=== PATIENT | female | born 1940 | race Caucasian/White ===

== ENCOUNTER 2017-11-16 12:37 | Outpatient (CLI) | payer MEDICARE ==
--- NOTE | 2017-11-18 11:21 | Ultrasound Report ---
BILATERAL LOWER EXTREMITY ARTERIAL DUPLEX: 11/16/2017 CLINICAL INDICATION: Blue cold toes, decreased pulses. TECHNIQUE: Real-time sonographic vascular imaging was performed by the grain elevator clerk through the lower extremities utilizing both color-flow and Doppler spectral analysis. Multiple market survey representative static images were saved for review. RIGHT SIDE SITE PSV WAVEFORM STEN CLEANING MATRON 118 biphasic PSFA 137 biphasic MSFA 98 biphasic DSFA 97 biphasic PFA 119 biphasic POP 73 biphasic ANN 45 biphasic INTERNATIONAL RELATIONS TEACHER 64 biphasic PER 47 biphasic DPA 36 biphasic LEFT SIDE SITE PSV WAVEFORM STEN CLEANING MATRON 98 biphasic PSFA 137 biphasic MSFA 135 biphasic DSFA 70 biphasic PFA 148 triphasic POP 72 biphasic NAN 68 biphasic INTERNATIONAL RELATIONS TEACHER 68 biphasic PER 45 biphasic DPA 49 biphasic FINDINGS RIGHT LEG: The waveforms are diffusely biphasic. There is a focal velocity increase in the right proximal superficial femoral artery, up to 288 cm/sec, then dropping to 114 cm/sec, compatible with a hemodynamically significant stenosis. LEFT LEG: Waveforms are predominantly biphasic. There is no evidence of a focal velocity increase to suggest hemodynamically significant stenosis. IMPRESSION 1. HEMODYNAMICALLY SIGNIFICANT STENOSIS IN THE RIGHT PROXIMAL SUPERFICIAL FEMORAL ARTERY. 2. BILATERAL BIPHASIC WAVEFORMS, SUGGESTIVE OF INFLOW DISEASE. MTDD
== END 2017-11-16 12:38 | disposition home or self-care (01) ==
LOC: DI 12:37
PROVIDERS: ATTEND Family Medicine
DX: I70.201 Unspecified atherosclerosis of native arteries of extremities, right leg (principal)
CPT/HCPCS: 93925

== ENCOUNTER 2017-12-26 06:50 | Outpatient (CLI) | payer MEDICARE | END 2017-12-26 06:51 | disposition critical access hospital (66) | LOC: EMS 06:50 | PROVIDERS: ATTEND Surgery | DX: R20.0 Anesthesia of skin (principal) | CPT/HCPCS: A0425; A0427 ==

== ENCOUNTER 2017-12-26 07:06 | Inpatient (IN) | payer MEDICARE ==
--- NOTE | 2017-12-26 07:18 | ED Physician Documentation ---
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 POLISHER: Hysterectomy Derm: Skin cancer surgery - Present Medications Home Medications: Ambulatory Orders Medication Instructions Recorded Confirmed Furosemide [Lasix] 40 mg PO DAILY 09/20/13 12/26/17 Aspirin EC [Ecotrin] 81 mg PO DAILY 10/02/13 12/26/17 Melatonin [Meladox] 3 mg PO QPM 10/02/13 12/26/17 Atorvastatin [Lipitor] 10 mg PO DAILY 12/26/17 12/26/17 Montelukast Sodium 10 mg PO QPM 12/26/17 12/26/17 - Allergies Allergies/Adverse Reactions: Allergies Allergy/AdvReac Type Severity Reaction Status Date / Time amoxicillin trihydrate * Allergy Unknown Verified 09/20/13 08:54 [From Augmentin] potassium clavulanate * Allergy Unknown Verified 09/20/13 08:54 [From Augmentin] - Social History Does the pt smoke?: Yes Smoking Status: Current every day smoker Does the pt drink ETOH?: Yes Does the pt have substance abuse?: No - Immunizations Immunizations are current?: Yes - POLST Patient has POLST: No PD ED PE NORMAL - Vitals Vital signs reviewed: Yes - General General: Alert and oriented X 3 - HEENT HEENT: PERRL, EOMI - Neck Neck: Supple, no meningeal sign - Cardiac Cardiac: RRR. No: No murmur (+ systolic murmur new per pt) - Respiratory Respiratory: No respiratory distress, Clear bilaterally - Abdomen Abdomen: Soft, Non tender - Derm Derm: Normal color - Extremities Extremities: No deformity - Neuro Neuro: Alert and oriented X 3, Normal speech. No: senior systems developer 2-12 intact (dec sensation to right face), No motor deficit (R arm drift, R leg drift, diff with finger nose on the right), No sensory deficit (R face arm leg) Eye Opening: Spontaneous Motor: Obeys Commands Verbal: Oriented GCS Score: 15 Results - Vitals Vitals: Vital Signs - 24 hr 12/26/17 12/26/17 12/26/17 07:21 08:15 08:34 Temperature 36.5 C 36.4 C L Heart Rate 54 L 56 L 52 L Respiratory 20 15 15 Rate Blood Pressure 182/66 H 169/62 H 149/55 H O2 Saturation 97 95 96 12/26/17 09:50 Temperature Heart Rate 54 L Respiratory 16 Rate Blood Pressure 145/58 H O2 Saturation 97 Oxygen O2 Source Room air - EKG (time done) 0711 Rate: Rate (enter#) Rhythm: NSR [place]: Normal Intervals: Normal TX QRS: Normal Ischemia: Non specific changes - Labs Labs: Laboratory Tests 12/26/17 12/26/17 12/26/17 08:04 08:04 08:04 WBC 12.6 H RBC 4.97 Hgb 15.6 Hct 46.3 MCV 93.1 MCH 31.3 H MCHC 33.6 RDW 13.8 Plt Count 225 MPV 9.0 Neut # 8.0 H Lymph # 3.4 [place] # 0.8 Eos # 0.2 Baso # 0.1 Absolute Nucleated RBC 0.00 Nucleated RBC % 0.0 PT 11.6 INR 1.0 APTT 28.9 Sodium 140 Potassium 3.0 L Chloride 105 Carbon Dioxide 25 Anion Gap 10.0 BUN 15 Creatinine 0.7 Estimated GFR (MDRD) 81 L Glucose 101 H Calcium 9.1 - Rads (name of study) CTH Radiology: See rad report (no acute infarct bleed mass hydrocephalus or abn post con enhancement, in the high left parietal calvarium there is a patchy lucenty up to 3.5 cm rk be myeloma or a metastatic lesion, consider bone scan) CT head Radiology: See rad report (no large vessel occulsion, approx 30% stenosis distal basilar artery, no aneurysm) CTA neck Radiology: See rad report (atherosclerotic clacifications V1-V3 left vertebral artery with 50% narrowing proximal V2 segment left vertebral, atherosclerotic calcifications carotid bulbs with no sig stenosis) echo Radiology: See rad report (sinus fariba, no seprtal defect, no sig valve abn, EF 65-70%) PD MEDICAL DECISION MAKING - ED course ED course: pt with sig stroke sx in window for TPA CTH no ICH prepared ischemic CVA dose of TPA as approaching end of 3 hr window (not given just ready) pt returned from CT sx are much improved now still with very slight drift to R arm and leg, some dec sensation to R arm and leg rpt NIHSS done by neuro is now 4 but no dysarthria now, finger nose intact now, slight trouble with heel bautista, tele stroke neuro from [facility] Dr Hsu examined pt remotely, discussed risks and benefits of the TPA with her she declines systemic TPA after neuro discussed risks and benefits with her CTA head and neck were done at the same time and neuro will review those to see if pt might benefit from IR CTA results reviewed with neuro as well tele-neuro Dr Hsu recommends that having declined systemic TPA and no IR amenable lesions on angios he rec pt be admitted to [facility] for further care to include MRI, tele, PT. Pt si already on asa 81 mg daily so he rec dual antiplt therapy with plavix (start 75 no load) and asa for 90 days then just plavix spoke to hospitalist at 930 AM - she is going into care management meeting now and will not be able to write orders for 45 min throughout remainder of ER stay pt continued to have waxing and waning severity of these neuro sx - TPA CVA checklist Inclusion crititeria: positive: Sig neuro deficit, CT no bleed, Onset know < 4.5 hr Absolute contraindications: negative: SBP>185 DBP>110 s/p tx, CT shows bleed, CT shows major est CVA, Platelets <100K, PTT > 40, INR >1.7, Known bleeding disorder, Surgery/trauma < 15 days, Seizure at onset, Internal bleed < 22 days, Brain/spine surg < 3 m, Head trauma < 3 m, CVA < 3 months, Any hx ICH, Any hx brain aneurysm, Any hx brain AVM, Any hx brain tumor, Suspect SAH Relative contraindications: negative: Too severe (NIHSS>22), Too mild, Rapid improvement, Glusose <50 >400, Life expectancy < 1 yr, Severe comorbid illness, Bacterial endocarditis, Severe hepatic dz, Severe renal dz, Hemorrhagic eye condition, Septic thrombophlebitis, Infected AV shunt, On coumadin, , Advanced age, Left heart thrombus Absolute contraindications if 3-4.5 hr: negative: Coumadin (any INR), Age > 80, Combo prior CVA & DM Departure - Departure Disposition: 66 [facility] DC/Xfer Clinical Impression: Cerebrovascular accident (CVA) Qualifiers: CVA mechanism: unspecified Qualified Code(s): I63.9 - Cerebral infarction, unspecified Condition: Fair Discharge Date/Time: 12/26/17 11:15 NIHSS - Time Time: 07:10 - Level of Consciousness Level of consciousness: (0) Alert, Keenly responsive LOC Questions: (0) Answers both Q's correct LOC Commands: (0) Performs both correctly - Gaze Best Gaze: (0) Normal - Visual Visual: (0) No loss - Facial Palsy Facial Palsy: (1) Minor paralysis - Motor Arms (both separate) Motor Arm (right): (1) Drift Motor Arm (left): (0) No drift - Motor Legs (both separate) Motor Leg (right): (1) Drift Motor Leg (left): (0) No drift - Limb Ataxia Limb Ataxia: (1) Present in 1 limb - Sensory Sensory: (1) Usme-wn-isnzhpdm loss - Best Language Best Language: (0) No aphasia - Dysarthria Dysarthria: (1) [id number]-tayvlskt dysarthria - Extinction and Inattention (formally neg Extinction and inattention: (1) Visual,tactile,auditory,spatial, or personal inattention - Total Score/Results Total Score/Result: 7
[2017-12-26] MEDS ORDERED: ALTEPLASE IV STA ×2 (07:37→07:49)
[2017-12-26] MEDS ORDERED: WATER FOR INJECTION STERILE IV STA ×2 (07:37→07:49)
[2017-12-26] MEDS ORDERED: IOPAMIDOL-300 100 ML VIAL ONE (07:40)
--- NOTE | 2017-12-26 07:48 | CT Report ---
EXAM: CT HEAD EXAM DATE: 12/26/2017 07:27 AM. CLINICAL HISTORY: R side weak numb onset 530. COMPARISON: None. TECHNIQUE: Multiaxial CT images were obtained from the foramen magnum to the vertex. Reformats: Coron al. IV contrast: None. In accordance with CT protocol optimization, one or more of the following dose reduction techniques w ere utilized for this exam: automated exposure control, adjustment of mA and/or KV based on patient s ize, or use of iterative reconstructive technique. FINDINGS: Parenchyma: Subtle patchy hypodensity in the bilateral cerebral white matter consistent with minimal chronic small vessel ischemic change. No intraparenchymal hemorrhage. No evidence of mass, midline sh ift, or CT findings of infarction. Liang-white differentiation is distinct. Extraaxial Spaces: Normal for age. No subdural or epidural collections identified. Ventricles: Normal in size and position. Sinuses and Orbits: Imaged paranasal sinuses, orbits, and mastoids show no significant abnormality. Bones: There is a 3.5 cm rounded area of groundglass lucency in the left paramedian parietal bone wit h slight thinning of the inner and outer tables. No associated soft tissue mass. No other definitely abnormal lucent or sclerotic bone lesions are identified. Other: No left hyperdense MCA. IMPRESSION: 1. No intracranial hemorrhage or current CT evidence of acute CVA. 2. Minimal patchy chronic small vessel ischemic change in the bilateral cerebral white matter. 3. 3.5 cm area of groundglass lucency and slight cortical thinning at the left paramedian parietal dario ne. No other distinct skull lesions are identified. The finding could reflect metastasis, multiple my eloma, or possibly Paget's disease of bone (osteoporosis circumscripta). No associated soft tissue ma ss is identified. RADIA The critical result notification system was initiated by Dr. Dave Root at 07:35 hrs on 12/26/17. The above findings were discussed with Dr. Conrad by Dr. Dave Root at 07:46 hrs on 12/26/17. Referring Provider Line: [phone] SITE ID: [id number]
[2017-12-26] MEDS ORDERED: ALTEPLASE 100 MG VIAL IVP STA (07:50)
[2017-12-26] MEDS ORDERED: ALTEPLASE 100 MG VIAL ONE (07:51)
[2017-12-26 08:11] LABS: BASOPHILS # (AUTO) 0.1 10^3/uL (0.0-0.1); BASOPHILS % (AUTO) 0.8 %; EOSINOPHILS # (AUTO) 0.2 10^3/uL (0.0-0.7); EOSINOPHILS % (AUTO) 1.7 %; HGB - HEMOGLOBIN 15.6 g/dL (12.0-16.0); LYMPHOCYTES # (AUTO) 3.4 10^3/uL (1.5-3.5); LYMPHOCYTES % (AUTO) 27.3 %; MEAN CORPUSCULAR HEMOGLOBIN 31.3 pg (27.0-31.0); MEAN CORPUSCULAR HGB CONC 33.6 g/dL (32.0-36.0); MEAN CORPUSCULAR VOLUME 93.1 fL (81.0-99.0); MONOCYTES # (AUTO) 0.8 10^3/uL (0.0-1.0); MONOCYTES % (AUTO) 6.4 %; NEUTROPHILS % (AUTO) 63.8 %; PLT - PLATELET COUNT 225 10^3/uL (130-450); RED BLOOD COUNT 4.97 10^6/uL (4.20-5.40); RED CELL DISTRIBUTION WIDTH 13.8 % (12.0-15.0); WHITE BLOOD COUNT 12.6 x10^3/uL (4.8-10.8)
[2017-12-26 08:18] LABS: CALCIUM 9.1 mg/dL (8.5-10.3); CREATININE 0.7 mg/dL (0.4-1.0)
[2017-12-26 08:33] LABS: PT - PROTHROMBIN TIME 11.6 secs (9.9-12.6)
--- NOTE | 2017-12-26 08:37 | CT Report ---
EXAM: CT ANGIOGRAM NECK EXAM DATE: 12/26/2017 07:57 AM. CLINICAL HISTORY: 77-year-old with right-sided weakness that began at 0530 hours on 12/26/2017. COMPARISON: CT head 12/26/2017. TECHNIQUE: Routine axial helical imaging was performed from the skull base through the aortic arch. R econstructions: Routine multiplanar 3D MIP reconstructions. IV Contrast: 100 cc [id number]. Evaluatio n of arterial stenosis is based on a NASCET method of measurement. In accordance with CT protocol optimization, one or more of the following dose reduction techniques w ere utilized for this exam: automated exposure control, adjustment of mA and/or KV based on patient s ize, or use of iterative reconstructive technique. FINDINGS POST-CONTRAST HEAD: Parenchyma: No acute parenchymal hemorrhage, mass, or midline shift. There is scattered bilateral are as of white matter attenuation seen that appear chronic suggesting sequela of chronic small vessel is chemic disease. There is no convincing CT evidence of acute infarct. Extra-axial Spaces: Normal. No extra-axial fluid collections or hemorrhage. Cisterns are patent. Ventricles: Ventricular size and configuration. Age-appropriate. Orbits and Sinuses: Changes of bilateral lens replacement. Small to moderate right maxillary mucosal retention cyst versus polyp. Mastoid air cells and middle ear cavities are clear. Extracranial Soft Tissues and Bones: Extracranial soft tissues are unremarkable. No fractures. Other: Other CT ANGIOGRAM HEAD AND NECK: There is atherosclerotic calcifications involving the aortic arch and origin of the right brachioceph alic and left subclavian noted with no significant high-grade stenosis seen RIGHT: Common Carotid Artery: Patent without significant stenosis. Carotid Bulb: There is mild atherosclerotic plaque at the bifurcation and siphon. Stenosis at the bif urcation by NASCET criteria: 0 percent. Internal Carotid Artery: No evidence of dissection. No evidence of aneurysm along the intracranial IC A. External Carotid Artery: Unremarkable. Vertebral Artery: Patent without significant stenosis. No evidence of dissection. Anterior Cerebral Artery: Patent without significant stenosis, aneurysm, or vascular malformation. Middle Cerebral Artery: Patent without significant stenosis, aneurysm, or vascular malformation. Posterior Cerebral Artery: Patent without significant stenosis, aneurysm, or vascular malformation. Posterior Communicating Artery: Not definitively seen. No aneurysm. LEFT: Common Carotid Artery: Patent without significant stenosis. Carotid Bulb: There is mild atherosclerotic plaque at the bifurcation and siphon. Stenosis at the bif urcation by NASCET criteria: 0 percent. Internal Carotid Artery: No evidence of dissection. No evidence of aneurysm along the intracranial IC A. External Carotid Artery: Unremarkable. Vertebral Artery: There is atherosclerotic calcifications involving the V1 through V3 segment of the left vertebral artery with 50% narrowing of the proximal V2 segment (series 4, image 203) of the left vertebral artery. No evidence of dissection. Anterior Cerebral Artery: Patent without significant stenosis, aneurysm, or vascular malformation. Middle Cerebral Artery: Patent without significant stenosis, aneurysm, or vascular malformation. Posterior Cerebral Artery: Patent without significant stenosis, aneurysm, or vascular malformation. Posterior Communicating Artery: Not definitively seen. No aneurysm. CENTRAL: Anterior Communicating Artery: Patent. No aneurysm. Basilar Artery: There is approximately 30% narrowing of the distal basilar artery. No aneurysm. DURAL VENOUS SINUSES AND MAJOR CENTRAL VEINS: Patent. OTHER: The visualized pharynx and larynx appear normal. Major salivary glands appear normal. Thyroid gland a ppears normal. No cervical lymphadenopathy or necrotic lymph nodes seen. Soft tissues of the neck andre ear normal. Visualized lung apices are clear. No acute fracture or traumatic subluxation of the cervical spine. Multilevel degenerative changes. No suspicious osseous lesion. IMPRESSION: CT HEAD 1. No acute infarct, hemorrhage, mass, hydrocephalus, or abnormal postcontrast enhancement. CTA NECK 1. There is atherosclerotic calcifications involving the V1 through V3 segment of the left vertebral artery with 50% narrowing of the proximal V2 segment (series 4, image 203) of the left vertebral kim ry. 2. There is atherosclerotic calcifications involving the carotid bulbs with no significant stenosis s een. CTA HEAD 1. No large vessel occlusion. 2. There is approximately 30% stenosis of the distal basilar artery. 3. No intracranial aneurysm. RADIA Referring Provider Line: [phone] SITE ID: [id number]
[2017-12-26] MEDS ORDERED: IOPAMIDOL-300 100 ML VIAL IVP ONE (08:39)
[2017-12-26] MEDS ORDERED: POTASSIUM CHLOR 10 MEQ/100 ML 10 MEQ/100 ML BAG IV ONE (09:37)
[2017-12-26] MEDS ORDERED: CLOPIDOGREL 75 MG TABLET PO STA (09:48)
[2017-12-26] MEDS ORDERED: ASPIRIN CHEW 81 MG TABLET PO STA (09:48)
[2017-12-26] MEDS ORDERED: SODIUM CHLORIDE FLUSH 0.9% 10 ML SYRINGE IVP PRN (10:33)
[2017-12-26] MEDS ORDERED: TEMAZEPAM 15 MG CAPSULE PO PRN (10:33)
[2017-12-26] MEDS ORDERED: ONDANSETRON 4 MG/2 ML VIAL IVP PRN (10:33)
[2017-12-26] MEDS ORDERED: CYCLOBENZAPRINE 10 MG TABLET PO PRN (10:42)
[2017-12-26] MEDS ORDERED: BUDESONIDE 0.5 MG/2 ML NEB INH SCH (19:00)
[2017-12-26] MEDS: MONTELUKAST 10 MG TABLET PO SCH (21:26)
[2017-12-26] MEDS: SODIUM CHLORIDE FLUSH 0.9% 10 ML SYRINGE IVP SCH ×2 (21:26→23:59)
[2017-12-26] MEDS: ATORVASTATIN 10 MG TABLET PO SCH (21:26)
[2017-12-27 05:52] LABS: CHOLESTEROL 153 mg/dL; HDL CHOLESTEROL 37 mg/dL; LDL CHOLESTEROL,CALCULATED 78 mg/dL; VLDL CHOLESTEROL 38 mg/dL
[2017-12-27 05:53] LABS: CHOL/HDL RATIO 4.1 (<4.4); LDL/HDL RATIO 2.1 (<4.4)
[2017-12-27] MEDS: ASPIRIN EC 81 MG TABLET PO SCH (08:43)
[2017-12-27] MEDS: ENOXAPARIN 40 MG/0.4 ML SYRINGE SUBQ SCH (08:43)
[2017-12-27] MEDS: FAMOTIDINE 20 MG TABLET PO SCH (08:43)
[2017-12-27] MEDS: POLYETHYLENE GLYCOL 3350 17 GM PACKET PO SCH (08:44)
[2017-12-27] MEDS: SODIUM CHLORIDE FLUSH 0.9% 10 ML SYRINGE IVP SCH ×2 (08:49→19:21)
[2017-12-27] MEDS ORDERED: GLUCOSAMINE HCL 1500 MG PO SCH (09:00)
[2017-12-27] MEDS ORDERED: FUROSEMIDE 40 MG TABLET PO SCH (09:00)
--- NOTE | 2017-12-27 09:14 | HISTORY & PHYSICAL EXAMINATION ---
DATE OF SERVICE: 12/26/2017 Physician: Elis Macias MD HISTORY OF PRESENT ILLNESS: This is a 77-year-old white female with a history of prior trauma to the right shoulder and right hip after a fall many years ago, but otherwise a negative past medical history. The patient developed sudden onset of right face, right arm and right leg sensory deficit and presented to the emergency room within the window of thrombolytic treatment. The emergency room doctor reached out to the teleneurologist. The patient was offered to get TPA, but after hearing the risks and benefits, she chose not to receive TPA. The neurologist then recommended that she be admitted for management post- stroke including antiplatelet agent, brain and echo and carotid imaging and start physical therapy and then rehabilitation including a SNF placement if she has no improvement. PAST MEDICAL HISTORY: Negative. ALLERGIES 1. AMOXICILLIN. 2. POTASSIUM. HOME MEDICATIONS 1. Melatonin. 2. Baby aspirin daily. 3. Lasix 40 mg daily. 4. Montelukast 10 mg every evening. 5. Lipitor 10 mg daily. FAMILY HISTORY: No inherited disease. SOCIAL HISTORY: The patient is a smoker of half pack a day, drinks very rare alcohol, uses no illicit drugs. 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 REVIEW OF SYSTEMS: A comprehensive review of systems was performed and the pertinent positives are in the HPI, the rest are negative. PHYSICAL EXAMINATION GENERAL: White female who is supine in bed. VITAL SIGNS: Blood pressure 140s to 160s over 50s to 60s, heart rate is 55 to 60 and sinus rhythm. She is afebrile. Room air saturation 96%. HEENT: Unremarkable. Moist oral mucosa. Normal gaze. NECK: Without carotid bruits or JVD. HEART: Sounds are normal. No audible murmur. CHEST: Clear. ABDOMEN: Soft with positive bowel sounds. Nontender. EXTREMITIES: No edema. There is no clubbing or cyanosis. NEUROLOGIC: She has decreased sensation in the right half of her entire face, her right arm and her right leg. She is able to move the right leg and arm on her own, but only if she looks at it and goldman it to do the movement. There is some tiny bit of residual sensation still present on the face, arm, and leg, however. No other neurologic signs. LABORATORIES: Normal electrolytes except sodium 3.0. Normal BUN and creatinine and glucose. White blood count 12.6 with a left shift, hemoglobin 15.6, platelet count normal at 225. INR normal at 1.0. EKG: Sinus bradycardia at a rate of [address]-T abnormality in the inferolateral leads. There is no old EKG available for comparison. CT of the head and neck showed the following: No acute parenchymal hemorrhage, mass or midline shift, age-related ventricle sizes, common carotid and vertebral arteries had no significant stenoses. There is mild atherosclerosis in the left carotid and a 30% narrowing of the distal basilar artery centrally and atherosclerosis involving the V1 through V3 segments of the left vertebral artery and a 50% narrowing of the proximal V2 segment of the left vertebral artery. There was also an area of irregular lucency in the left parietal calvarium of the skull, which could be metastasis or myeloma. IMPRESSION/DIAGNOSES 1. Acute sensory stroke of the right side of the body. Atherosclerosis by initial imaging of the head and neck. Abnormality of the skull with a lytic lesion 2. History of hypertension. 3. History of elevated cholesterol. PLAN: Admit the patient. Start telemetry to watch for atrial fibrillation or other arrhythmias. Obtain an Echo to rule out a cardiac source of embolus or shunt. Obtain further carotid imaging with Doppler and also further brain imaging with brain MRI and MRA and consider neck MRA. The patient states she is claustrophobic. Therefore, the MRI test would need to be with sedation preceding it. Continue neuro checks closely. Continue daily aspirin, which was started in the emergency room. Check lipids and treat per guidelines. Permissive hypertension will be allowed for the first several days to avoid brain hypoperfusion if the blood pressure drops. Deep venous thrombosis prophylaxis: Sequential compression devices. CODE STATUS: FULL CODE. ATTESTATION: The patient is expected to be discharged or transferred to another facility within 96 hours: Yes. TD: 12/26/2017 18:03 KITA
[2017-12-27] MEDS ORDERED: LORazepam 0.5 MG TABLET SL PRN (10:39)
--- NOTE | 2017-12-27 17:51 | PROVIDER PROGRESS NOTE ---
Assessment/Plan - Problem List (1) Cerebrovascular accident (CVA) Qualifiers: CVA mechanism: unspecified Qualified Code(s): I63.9 - Cerebral infarction, unspecified Assessment/Plan: Continues with right sided weakness, but distribution does not suggest any vascular territory. IE: face, right arm, right leg numbness with variable weakness. No objective facial droop, dysarthria. Intact cognition. Reports slight improvement of weakness. Did not tolerate MRI due to anxiety and claustrophobia regardless of premedication with ativan. She would only consider open MRI, unless "knocked out". Will consider repeating CT head am. Per PT/OT might need rehab. Speech therapy examined patient and cleared her. Workup getting completed/Echo. Started Plavix, Fenofibrate, continue statin. (2) Lymphedema Assessment/Plan: Takes lasix for Lymphedema, No hx of CHF or renal failure. (3) Smoking Assessment/Plan: Not interested in smoking cessation. (4) Dyslipidemia Assessment/Plan: Abnormal triglycerides, on statin. Added fenofibrate. - Current Meds Current Meds: Current Medications Generic Name Dose Route Start Last Admin Trade Name Freq PRN Reason Stop Dose Admin Aspirin 81 mg 12/27/17 09:00 12/27/17 08:43 Ecotrin PO 81 mg DAILY YO Administration Atorvastatin Calcium 10 mg 12/26/17 21:00 12/26/17 21:26 Lipitor PO 10 mg QPM YO Administration Enoxaparin Sodium 40 mg 12/27/17 09:00 12/27/17 08:43 Lovenox SUBQ 40 mg DAILY YO Administration Famotidine 20 mg 12/27/17 09:00 12/27/17 08:43 Pepcid PO 20 mg DAILY YO Administration Montelukast Sodium 10 mg 12/26/17 21:00 12/26/17 21:26 Singulair PO 10 mg QPM YO Administration Polyethylene Glycol 17 gm 12/27/17 09:00 12/27/17 08:44 Miralax PO 17 gm DAILY YO Administration Sodium Chloride 10 ml 12/26/17 10:33 12/27/17 00:00 Normal Saline Flush 0.9% IVP 10 ml PRN PRN Administration NEEDED PER PROVIDER ORDERS Sodium Chloride 10 ml 12/26/17 17:00 12/27/17 08:49 Normal Saline Flush 0.9% IVP 10 ml 0100,0900,1700 YO Administration Temazepam 15 mg 12/26/17 10:33 12/26/17 23:59 Restoril PO 15 mg QPM PRN Administration Insomnia - Lab Result Fish Bone Diagrams: 12/26/17 08:04 12/26/17 08:04 - Additional Planning Condition/Complexity: Improved Plan Discussed with:: Patient, Family Time Spent: 31-60 minutes Subjective - Subjective Patient Reports: Feeling Better Objective Vital Signs: Vital Signs - 24 hr 12/26/17 12/27/17 12/27/17 21:21 00:00 04:00 Temperature 37.1 C 37.2 C 36.7 C Heart Rate [ 56 L 54 L 55 L Brachial] Respiratory 18 16 16 Rate Blood Pressure 176/52 H 152/53 H 158/63 H [Left Brachial artery] Blood Pressure [Right Brachial artery] O2 Saturation 95 95 95 12/27/17 12/27/17 12/27/17 08:58 13:00 15:32 Temperature 36.5 C 36.3 C L Heart Rate [ 56 L 59 L 55 L Brachial] Respiratory 16 18 20 Rate Blood Pressure 136/52 H 141/53 H [Left Brachial artery] Blood Pressure 136/63 H [Right Brachial artery] O2 Saturation 94 95 95 12/27/17 17:00 Temperature 36.3 C L Heart Rate [ 55 L Brachial] Respiratory 18 Rate Blood Pressure [Left Brachial artery] Blood Pressure [Right Brachial artery] O2 Saturation 94 Oxygen O2 Source [With Activity] Room air O2 Source Room air I&O (Last 24 Hrs): Intake and Output Totals x24h 12/25/17 12/26/17 12/27/17 23:59 23:59 23:59 Intake Total 1010 600 Output Total 950 Balance 1010 -350 General: Alert, Oriented x3 Neck: Supple Neuro: Alert, Other (right arm weaker at times, but moves. c/o facial numbness but improving.) Cardiovascular: Regular rate, Normal S1, Normal S2 Respiratory: No respiratory distress, Breath sounds nml Abdomen: No tenderness - Results Results: Laboratory Results WBC 12.6 x10^3/uL (4.8-10.8) H 12/26/17 08:04 RBC 4.97 10^6/uL (4.20-5.40) 12/26/17 08:04 Hgb 15.6 g/dL (12.0-16.0) 12/26/17 08:04 Hct 46.3 % (37.0-47.0) 12/26/17 08:04 MCV 93.1 fL (81.0-99.0) 12/26/17 08:04 MCH 31.3 pg (27.0-31.0) H 12/26/17 08:04 MCHC 33.6 g/dL (32.0-36.0) 12/26/17 08:04 RDW 13.8 % (12.0-15.0) 12/26/17 08:04 Plt Count 225 10^3/uL (130-450) 12/26/17 08:04 MPV 9.0 fL (7.9-10.8) 12/26/17 08:04 Neut # 8.0 10^3/uL (1.5-6.6) H 12/26/17 08:04 Lymph # 3.4 10^3/uL (1.5-3.5) 12/26/17 08:04 [place] # 0.8 10^3/uL (0.0-1.0) 12/26/17 08:04 Eos # 0.2 10^3/uL (0.0-0.7) 12/26/17 08:04 Baso # 0.1 10^3/uL (0.0-0.1) 12/26/17 08:04 Absolute Nucleated RBC 0.00 x10^3/uL 12/26/17 08:04 Nucleated RBC % 0.0 /100WBC 12/26/17 08:04 PT 11.6 secs (9.9-12.6) 12/26/17 08:04 INR 1.0 (0.8-1.2) 12/26/17 08:04 APTT 28.9 secs (24.9-33.3) 12/26/17 08:04 Sodium 140 mmol/L (135-145) 12/26/17 08:04 Potassium 3.0 mmol/L (3.5-5.0) L 12/26/17 08:04 Chloride 105 mmol/L (101-111) 12/26/17 08:04 Carbon Dioxide 25 mmol/L (21-32) 12/26/17 08:04 Anion Gap 10.0 (6-13) 12/26/17 08:04 BUN 15 mg/dL (6-20) 12/26/17 08:04 Creatinine 0.7 mg/dL (0.4-1.0) 12/26/17 08:04 Estimated GFR (MDRD) 81 (>89) L 12/26/17 08:04 Glucose 101 mg/dL (70-100) H 12/26/17 08:04 Calcium 9.1 mg/dL (8.5-10.3) 12/26/17 08:04 Triglycerides 191 mg/dL (-149) H 12/27/17 05:15 Cholesterol 153 mg/dL (-199) 12/27/17 05:15 LDL Cholesterol, Calc 78 mg/dL (-129) 12/27/17 05:15 VLDL Cholesterol 38 mg/dL 12/27/17 05:15 HDL Cholesterol 37 mg/dL (60-) L 12/27/17 05:15 LDL/HDL Ratio 2.1 (<4.4) 12/27/17 05:15 Cholesterol/HDL Ratio 4.1 (<4.4) 12/27/17 05:15
[2017-12-27] MEDS: FENOFIBRATE 48 MG TABLET PO SCH (19:21)
[2017-12-27] MEDS: CLOPIDOGREL 75 MG TABLET PO SCH (19:21)
[2017-12-27] MEDS: ATORVASTATIN 10 MG TABLET PO SCH (20:55)
[2017-12-27] MEDS: MONTELUKAST 10 MG TABLET PO SCH (20:55)
[2017-12-28] MEDS: SODIUM CHLORIDE FLUSH 0.9% 10 ML SYRINGE IVP SCH ×3 (01:41→21:00)
--- NOTE | 2017-12-28 05:43 | CT Preliminary Report ---
Exam: CT HEAD W/O IMPRESSION: 1. New hypodensity in the left thalamus is consistent with an evolving acute lacunar infarct, not pre sent on the brain CT from 2 days ago. 2. No other acute intracranial process identified. [facility] SITE ID: [id number]
--- NOTE | 2017-12-28 05:49 | CT Report ---
EXAM: CT HEAD EXAM DATE: 12/28/2017 05:29 AM. CLINICAL HISTORY: Right-sided weakness. COMPARISON: Brain CT from 12/26/2017. TECHNIQUE: Multiaxial CT images were obtained from the foramen magnum to the vertex. Reformats: Coron al. IV contrast: None. In accordance with CT protocol optimization, one or more of the following dose reduction techniques w ere utilized for this exam: automated exposure control, adjustment of mA and/or KV based on patient s ize, or use of iterative reconstructive technique. FINDINGS: Parenchyma: No intraparenchymal hemorrhage. A new 9 mm focus of hypodensity is noted in the lateral a spect of the left thalamus, consistent with an acute infarct. Liang-white differentiation is distinct. Mild diffuse chronic microangiopathic white matter changes are evident. Extraaxial Spaces: Normal for age. No subdural or epidural collections identified. Ventricles: The ventricles and cortical sulci are mildly enlarged, consistent with age-related tissue loss. Sinuses and orbits: Postsurgical changes from cataract extractions are noted in the globes. The paran eric and mastoid sinuses are not opacified. Bones: No evidence of fracture or calvarial defect. Other: Mild intracranial atherosclerosis is noted. IMPRESSION: 1. New hypodensity in the left thalamus is consistent with an evolving acute lacunar infarct, not pre sent on the brain CT from 2 days ago. 2. No other acute intracranial process identified. [facility] Referring Provider Line: [phone] SITE ID: [id number]
[2017-12-28] MEDS: FUROSEMIDE 40 MG TABLET PO SCH (08:57)
[2017-12-28] MEDS: FAMOTIDINE 20 MG TABLET PO SCH (08:57)
[2017-12-28] MEDS: POLYETHYLENE GLYCOL 3350 17 GM PACKET PO SCH (08:59)
[2017-12-28] MEDS: CLOPIDOGREL 75 MG TABLET PO SCH (08:59)
[2017-12-28] MEDS: ENOXAPARIN 40 MG/0.4 ML SYRINGE SUBQ SCH (08:59)
[2017-12-28] MEDS: FENOFIBRATE 48 MG TABLET PO SCH (08:59)
[2017-12-28] MEDS: ASPIRIN EC 81 MG TABLET PO SCH (08:59)
[2017-12-28] MEDS: ACETAMINOPHEN 325 MG TABLET PO PRN (09:11)
--- NOTE | 2017-12-28 12:50 | PROVIDER PROGRESS NOTE ---
Objective - Vital Signs/Intake & Output Vital Signs: Vital Signs x48h Temp Pulse Resp BP Pulse Ox 12/28/17 08:39 36.7 C 54 L 18 175/60 H 95 12/28/17 06:30 57 L 170/62 H 12/28/17 05:20 37.0 C 54 L 18 169/61 H 94 Intake & Output: Intake & Output 12/25/17 12/26/17 12/27/17 12/28/17 23:59 23:59 23:59 23:59 Intake Total 1010 1000 600 Output Total 1750 600 Balance 1010 -750 0 - Lab Results Fish Bones: 12/26/17 08:04 12/26/17 08:04 Assessment/Plan - Problem List (1) Cerebrovascular accident (CVA) Qualifiers: CVA mechanism: unspecified Qualified Code(s): I63.9 - Cerebral infarction, unspecified
--- NOTE | 2017-12-28 13:03 | PROVIDER PROGRESS NOTE ---
Subjective - Prog Note Date Prog Note Date: 12/28/17 - Subjective Pt reports feeling: Improved (Feels better but right sided weakness is still present. Feels her improvment is slower than she would like it to be. No new complaints today.) Objective - Vital Signs/Intake & Output Vital Signs: Vital Signs x48h Temp Pulse Resp BP Pulse Ox 12/28/17 08:39 36.7 C 54 L 18 175/60 H 95 12/28/17 06:30 57 L 170/62 H 12/28/17 05:20 37.0 C 54 L 18 169/61 H 94 Intake & Output: Intake & Output 12/25/17 12/26/17 12/27/17 12/28/17 23:59 23:59 23:59 23:59 Intake Total 1010 1000 600 Output Total 1750 600 Balance 1010 -750 0 - Objective General Appearance: positive: No acute distress, Alert Eyes Bilateral: positive: Normal inspection Neck: positive: Nml inspection Respiratory: positive: No respiratory distress Skin: positive: Color nml, No rash Neurologic/Psychiatric: positive: Oriented x3 - Lab Results Fish Bones: 12/26/17 08:04 12/26/17 08:04 Assessment/Plan - Problem List (1) Cerebrovascular accident (CVA) Impression: CVA mechanism: unspecified Qualified Code(s): I63.9 - Cerebral infarction, unspecified Assessment/Plan: Continues with right sided weakness, but reports improvement Repeating CT head this am showed Left thalamus lacunar infarct. Per PT/OT needs rehab. Speech therapy examined patient and cleared her. Workup completed/Echo normal. Continue Plavix, Fenofibrate, statin. Permissive hypertension today; if remains with elevated blood pressure will add antihypertensive tomorrow. (2) Lymphedema Assessment/Plan: Takes lasix for Lymphedema, No hx of CHF or renal failure. (3) Smoking Assessment/Plan: Not interested in smoking cessation. (4) Dyslipidemia Assessment/Plan: Abnormal triglycerides, on statin and fenofibrate. Qualifiers: CVA mechanism: unspecified Qualified Code(s): I63.9 - Cerebral infarction, unspecified
[2017-12-28] MEDS: MONTELUKAST 10 MG TABLET PO SCH (21:00)
[2017-12-28] MEDS: ATORVASTATIN 10 MG TABLET PO SCH (21:00)
[2017-12-29] MEDS: SODIUM CHLORIDE FLUSH 0.9% 10 ML SYRINGE IVP SCH ×3 (01:14→20:34)
[2017-12-29] MEDS: POLYETHYLENE GLYCOL 3350 17 GM PACKET PO SCH (09:07)
[2017-12-29] MEDS: FUROSEMIDE 40 MG TABLET PO SCH (09:08)
[2017-12-29] MEDS: ASPIRIN EC 81 MG TABLET PO SCH (09:08)
[2017-12-29] MEDS: FENOFIBRATE 48 MG TABLET PO SCH (09:08)
[2017-12-29] MEDS: ENOXAPARIN 40 MG/0.4 ML SYRINGE SUBQ SCH (09:08)
[2017-12-29] MEDS: FAMOTIDINE 20 MG TABLET PO SCH (09:08)
[2017-12-29] MEDS: CLOPIDOGREL 75 MG TABLET PO SCH (09:08)
[2017-12-29] MEDS: ACETAMINOPHEN 325 MG TABLET PO PRN (10:12)
[2017-12-29] MEDS ORDERED: POTASSIUM CHLORIDE 20 MEQ TABLET PO ONE (12:00)
--- NOTE | 2017-12-29 15:28 | PROVIDER PROGRESS NOTE ---
Subjective - Prog Note Date Prog Note Date: 12/29/17 - Subjective Pt reports feeling: No change (Feels the same today; has difficulty using her right hand and arm. Looking forward to more PT/OT/rehab.) Objective - Vital Signs/Intake & Output Vital Signs: Vital Signs x48h Temp Pulse Resp BP BP Pulse Ox 12/29/17 12:35 36.7 C 59 L 18 144/57 H 96 12/29/17 10:09 53 L 137/53 H 12/29/17 08:22 36.9 C 55 L 18 174/58 H 94 Intake & Output: Intake & Output 12/26/17 12/27/17 12/28/17 12/29/17 23:59 23:59 23:59 23:59 Intake Total 1010 1000 2170 1020 Output Total 1750 1400 100 Balance 1010 -750 770 920 - Objective General Appearance: positive: No acute distress Eyes Bilateral: positive: Normal inspection Skin: positive: No rash Neurologic/Psychiatric: positive: Oriented x3 - Lab Results Fish Bones: 12/26/17 08:04 12/26/17 08:04 Assessment/Plan - Problem List (1) Cerebrovascular accident (CVA) Impression: Impression: CVA mechanism: unspecified Qualified Code(s): I63.9 - Cerebral infarction, unspecified Assessment/Plan: Continues with right sided weakness. Repeating CT head showed Left thalamus lacunar infarct. Continues PT/OT, awaiting discharge to rehab. Speech therapy examined patient and cleared her. Workup completed/Echo normal. Continue Plavix, Fenofibrate, statin. (2) Lymphedema Assessment/Plan: Takes lasix for Lymphedema, No hx of CHF or renal failure. (3) Smoking Assessment/Plan: Not interested in smoking cessation. (4) Dyslipidemia Assessment/Plan: Abnormal triglycerides, on statin and fenofibrate. 5. Hypokalemia/ potassium replaced. PLAN: Needs post stroke rehabilitation. Awaiting insurance approval and facility acceptance. Case was discussed with case management. Likely can d/c am 12/30/2017. Qualifiers: CVA mechanism: unspecified Qualified Code(s): I63.9 - Cerebral infarction, unspecified
--- NOTE | 2017-12-29 17:49 | Discharge Plan ---
"Discharge Plan for SNF / [facility] - DC Plan and Transition Orders Disposition: 03 SNF DC/Xfer SNF Transition Orders: Admit to: [facility], [facility] under the care of Facility MD Discharge Diagnosis: Acute CVA, Dyslipidemia Medicare Certification: I certify that Post Hospital residential care is medically necessary on a continuing basis for any of the conditions for which she/he is receiving care during hospitalization. Notify PCP of admission and forward orders to primary provider for signature. Weight on admission and Weekly. Call PCP immediately if weight increases by 10 pounds or if patient develops dyspnea, chest pain/tightness or edema. House Bowel Program: Yes If no BM after 2 days, nurse may give M.O.M. 30ml PO PRN and /or ducolax Supp 1 MT and /or VALORIE 250mg P.O., and/or senna 1-2 tabs PO. On day 3 nurse may give repeat above order until residents constipation is resolved. Immunizations: Annual Influenza Vaccine: Yes. (between May 27 and December 24.) Unless allergy or already given Two-Step PPD: No per [facility] [id number] or appropriate documentation of approved exceptions Treatments & Other Orders: Oxygen Orders: Lab Tests or X-Rays Orders: Orthopedic Orders: Medications: PLEASE REFER TO THE DISCHARGE MEDICATION LIST. Insulin Orders? No Diagnosis: Diabetes Initiate hypo and hyperglycemia protocols for BG <70 and BG >375. May check BG prn for signs/symptoms of dysglycemia. Frequency of BG checks: [AC/Meal/HS] Basal Insulin: Lantus 100 units / ml inject subq as follows: [] [] Other: [] Correction Insulin: - Select the type of insulin below [Choose: Novolog/Humalog]100 units /ml insulin inject subq per orders indicate below [] LOW DOSE [] MODERATE DOSE [] MODERATE/HIGH DOSE [] HIGH DOSE GB UNITS GB UNITS GB UNITS GB UNITS 61-140 0 UNITS 61-140 0 UNITS 61-140 0 UNITS 61-140 0 UNITS 141-175 1 UNITS 141-175 1 UNITS 141-175 2 UNITS 141-175 3 UNITS 176-225 2 UNITS 176-225 3 UNITS 176-225 4 UNITS 176-225 5 UNITS 226-275 3 UNITS 226-275 5 UNITS 226-275 6 UNITS 226-275 7 UNITS 276-325 4 UNITS 276-325 7 UNITS 276-325 8 UNITS 276-325 9 UNITS 326-375 5 UNITS 326-375 9 UNITS 326-375 10 UNITS 326-375 11 UNITS >375 CONTACT MD >375 CONTACT MD >375 CONTACT MD >375 CONTACT MD Custom Dosing: [Choose: None/Novolog/Humalog] 100 units/ml Insulin inject subq as follows: GB Units 61-140 [] Units 141-175 [] Units 176-225 [] Units 226-275 [] Units 276-325 []Units 326-375 [] Units >375 Contact MD Allergies and Adverse Reactions: Allergies Allergy/AdvReac Type Severity Reaction Status Date / Time amoxicillin trihydrate * Allergy Unknown Verified 09/20/13 08:54 [From Augmentin] potassium clavulanate * Allergy Unknown Verified 09/20/13 08:54 [From Augmentin] - Medications New Prescriptions: Acetaminophen [Tylenol] 650 mg PO Q4HR PRN #30 tablet PRN Reason: Pain Or Fever > 38c (100.4f) Atorvastatin [Lipitor] 10 mg PO DAILY #30 tablet Clopidogrel [Plavix] 75 mg PO DAILY #30 tablet Fenofibrate [Tricor] 48 mg PO DAILY #30 tablet - Diet Texture: Regular Liquids: Thin May have monthly special meal: Yes - Therapies | Activity Therapy: Evaluation | Treat if indicated: PT, OT Rehabilitation Potential: Maximize functional status, Return to independent living Activity: Activity as Tolerated Assistance Devices: Walker, Cane Additional Instructions: The CT scans did not show any bleeding in your brain or significant vessel abnormalities - but the radiologist did see an abnormal lucent area of your skull that could be cancerous and needs further work up, perhaps a bone scan - if this was not done while you were admitted to the hospital please see your PMD to get that test done"
[2017-12-29] MEDS: MONTELUKAST 10 MG TABLET PO SCH (20:31)
[2017-12-29] MEDS: ATORVASTATIN 10 MG TABLET PO SCH (20:31)
[2017-12-30] MEDS: SODIUM CHLORIDE FLUSH 0.9% 10 ML SYRINGE IVP SCH
[2017-12-30 08:00] VITALS: BP 156/51
[2017-12-30] MEDS: FUROSEMIDE 40 MG TABLET PO SCH (08:19)
[2017-12-30] MEDS: POLYETHYLENE GLYCOL 3350 17 GM PACKET PO SCH (08:19)
[2017-12-30] MEDS: CLOPIDOGREL 75 MG TABLET PO SCH (08:20)
[2017-12-30] MEDS: FENOFIBRATE 48 MG TABLET PO SCH (08:20)
[2017-12-30] MEDS: FAMOTIDINE 20 MG TABLET PO SCH (08:20)
[2017-12-30] MEDS: ASPIRIN EC 81 MG TABLET PO SCH (08:20)
[2017-12-30] MEDS: ENOXAPARIN 40 MG/0.4 ML SYRINGE SUBQ SCH (08:21)
--- NOTE | 2017-12-30 08:22 | DISCHARGE SUMMARY ---
Physician: Aggie Pimentel MD DATE OF ADMISSION: 12/26/2017 DATE OF DISCHARGE: 12/30/2017 DISCHARGE MEDICATIONS New prescriptions: 1. Plavix 75 mg p.o. daily. 2. Fenofibrate 45 mg p.o. daily. 3. Tylenol 650 mg p.o. every 4 hours p.r.n. for pain or fever. The following home medications continued unchanged: 1. Lasix 40 mg p.o. daily. 2. Aspirin 81 mg p.o. daily. 3. Melatonin 3 mg p.o. daily. 4. Montelukast 10 mg p.o. daily. 5. Lipitor 10 mg p.o. daily. DISCHARGE DIAGNOSES 1. Acute cerebrovascular accident in the left thalamus resulting in right- sided deficit/upper and lower extremity weakness, difficulty ambulating, and dysequilibrium. 2. Cigarette smoking, cessation discussed and recommended. 3. Chronic lymphedema without heart failure, taking daily Lasix 40 mg daily. 4. Dyslipidemia with abnormal lipid panel including hypertriglyceridemia, high LDL, and low HDL levels. DIAGNOSTIC TESTS CT scan of the brain showed a left thalamic lacunar infarct. This was seen 48 hours after initial admission. The first CT scan, which was done on admission, had not yet shown cerebrovascular accident it, however, showed 3.5 cm area of ground glass lucency and cortical thinning at the left paramedian parietal bone. No other skull lesions were identified; however , the radiologist recommended a followup for this lesion. Please note that MRI of the brain and skull was attempted, but patient did not tolerate. CT angiography of the head and neck showed no large vessel occlusion. No intracranial aneurysm. There was 30% stenosis of the distal basilar artery and there was left vertebral artery narrowing of 50%; however, these vessel stenoses and narrowings were not hemodynamically significant. Laboratories showed potassium was 3.0. Triglyceride was 191, cholesterol 153, LDL 78, HDL 37. Coagulation studies were unremarkable. BRIEF PRESENTATION AND HOSPITAL COURSE: Patient is a 77-year-old white female who was admitted to [facility] with symptoms of right-sided weakness affecting both upper and lower extremities , also involving the right side of the face. She had some associated numbness in these areas as well. Initially, she had a CT scan of the brain, which was negative. Further workup was ordered with MRI; however, the patient could not tolerate MRI even when she was premedicated. She has claustrophobia and refused further attempts to have an MRI. Therefore, on the second hospital day, she underwent repeat CT scan, which at that point showed the evolving stroke. It is notable that initially no other abnormality was described; however, later on an addendum was included from the radiologist, which showed a bone lucency and for that further followup with bone scan was recommended. Additional workup included echocardiogram, which showed no systolic dysfunction, ejection fraction was 65-70%. There was diastolic dysfunction, no wall motion abnormality. There was no significant valvular heart disease. Patient was monitored on telemetry and no abnormal event was recorded. Patient had overall improving uneventful hospital course. She remained hemodynamically stable. She was treated according to stroke protocol, was monitored with neuro checks, was evaluated by speech therapy, physical therapy, and occupational therapy. Speech therapy cleared the patient. She did not have any speech or swallowing difficulties. She, however, required ongoing physical therapy and occupational therapy. Therefore , she needs to discharge to longterm facility to continue rehabilitation. The patient has good chances to return to her home and continue to live independently. She has good chances that her right-sided weakness and deficit could improve with ongoing therapies. Regarding medications, she was started on Plavix for secondary stroke protection. She was continued on aspirin, which she took before. In the past, she was on Lipitor, but fenofibrate was added for better control of dyslipidemia. Regarding additional medications , she had been on Lasix for lymphedema and she wished to continue this medication. During the hospital stay, she had slightly lower than normal potassium level and she received potassium replacement. Patient has history of longstanding smoking. She was counseled and recommended smoking cessation. Time spent with this discharge was more than 30 minutes. ADDENDUM: 12/30/2017: Discharge condition: Patient was alert oriented and hemodynamically stable. Neuro: unchanged right sided weakness. Psych: appropriate mood and affect. Patient verbalized understanding of discharge plan; she was looking forward to rehabilitation. TD: 12/29/2017 19:40 KITA
== END 2017-12-30 08:50 | DRG 65 ==
LOC: EDUNIT# → ED 07:06 → MS2 10:33
PROVIDERS: ADMIT Internal Medicine; ATTEND Internal Medicine
DX: I63.9 Cerebral infarction, unspecified (principal); G81.91 Hemiplegia, unspecified affecting right dominant side; I10 Essential (primary) hypertension; E78.5 Hyperlipidemia, unspecified; E87.6 Hypokalemia; F17.200 Nicotine dependence, unspecified, uncomplicated; I89.0 Lymphedema, not elsewhere classified; F17.210 Nicotine dependence, cigarettes, uncomplicated; F40.240 Claustrophobia; R29.707 NIHSS score 7; R40.2412 Glasgow coma scale score 13-15, at arrival to emergency department; Z79.899 Other long term (current) drug therapy; Z85.828 Personal history of other malignant neoplasm of skin
CPT/HCPCS: 36415; 70450; 70496; 70498; 80048; 80061; 83721; 85025; 85610; 85730; 93005; 93306; 96365; 99284; 99285

== ENCOUNTER 2020-06-19 13:05 | Day surgery (SDC) | payer MEDICARE ==
[2020-06-19] MEDS ORDERED: LACTATED RINGERS 1,000 ML IV ONE ×2 (13:09→17:01)
--- NOTE | 2020-06-19 16:05 | ANESTHESIA ---
Pre-Anesthesia VS, & Labs - Diagnosis rectal bleeding - Procedure colonoscopy Vital Signs: Temp Pulse Resp BP Pulse Ox 37.0 C 63 16 169/73 H 96 06/19/20 13:26 06/19/20 13:26 06/19/20 13:26 06/19/20 13:26 06/19/20 13:26 Height: 5 ft 1 in Weight (kg): 85.1 kg Body Mass Index: 35.4 BMI Classification: Obese - NPO >8 hours - Is Patient ?: No Home Medications and Allergies Home Medications: Ambulatory Orders Gabapentin 06/18/20 Lisinopril [Prinivil] 06/18/20 Montelukast Sodium 10 mg PO QPM 12/26/17 Gabapentin 06/18/20 Lisinopril [Prinivil] 06/18/20 Allergies/Adverse Reactions: Allergies Allergy/AdvReac Type Severity Reaction Status Date / Time amoxicillin trihydrate * Allergy Unknown Verified 09/20/13 08:54 [From Augmentin] potassium clavulanate * Allergy Unknown Verified 09/20/13 08:54 [From Augmentin] Anes History & Medical History - Anesthetic History Anesthesia Complications: reports: No previous complications - Medical History Cardiovascular: reports: Hypertension, High cholesterol Pulmonary: reports: None Gastrointestinal: reports: Other Urinary: reports: None Neuro: reports: CVA (2018) Musculoskeletal: reports: Chronic back pain Endocrine/Autoimmune: reports: None Skin: reports: Other Smoking Status: Former smoker - Surgical History Gynecologic: Hysterectomy Orthopedic: Arthroscopic surgery Dermatologic: Skin cancer surgery Exam General: Alert Dental: WNL Mouth Opening: Greater than 4 Fingerbreadths Neck Mobility: Normal Mallampati classification: II Respiratory: Lungs clear Cardiovascular: Regular rate Mental/Cognitive Status: Alert/Oriented X3 Plan Anesthesia Type: MAC Consent for Procedure(s) Verified and Reviewed: Yes Code Status: Attempt Resuscitation ASA classification: 3-Severe systemic disease Is this case an emergency?: No
[2020-06-19] MEDS ORDERED: PROPOFOL 200 MG/20 ML VIAL IVP ONE (16:19)
[2020-06-19] MEDS ORDERED: MIDAZOLAM 2 MG/2 ML VIAL IVP ONE (16:19)
[2020-06-19] MEDS ORDERED: LIDOCAINE-MPF 2% 5 ML VIAL IM ONE (16:19)
[2020-06-19 17:11] VITALS: BP 155/84
--- NOTE | 2020-06-19 18:27 | ANESTHESIA POST OP EVALUATION ---
Anesthesia Post Eval - Post Anesthesia Eval Vitals: Last Vital Signs Temp 37.4 C 06/19/20 17:10 Pulse 78 06/19/20 17:10 Resp 16 06/19/20 17:10 BP 155/84 H 06/19/20 17:10 Pulse Ox 95 06/19/20 17:10 CV Function Including HR & BP: positive: Stable Pain Control: positive: Satisfactory Nausea & Vomiting: positive: Negative Mental Status: positive: Patient Participates Respiratory Status: Airway Patent Hydration Status: Satisfactory Anesthesia Complications: positive: None
== END 2020-06-19 13:06 | disposition home or self-care (01) ==
LOC: SDS 13:05
PROVIDERS: ATTEND Surgery
PROC: 0DBH8ZZ Excision of Cecum, Via Natural or Artificial Opening Endoscopic (ICD-10-PCS; 2020-06-19)
PROC: 0DBL8ZZ Excision of Transverse Colon, Via Natural or Artificial Opening Endoscopic (ICD-10-PCS; 2020-06-19)
PROC: 0DBN8ZZ Excision of Sigmoid Colon, Via Natural or Artificial Opening Endoscopic (ICD-10-PCS; 2020-06-19)
PROC: 0DBP8ZZ Excision of Rectum, Via Natural or Artificial Opening Endoscopic (ICD-10-PCS; 2020-06-19)
PROC: 0DBM8ZZ Excision of Descending Colon, Via Natural or Artificial Opening Endoscopic (ICD-10-PCS; principal; 2020-06-19 14:30)
DX: D12.3 Benign neoplasm of transverse colon (principal); D12.0 Benign neoplasm of cecum; D12.4 Benign neoplasm of descending colon; D12.5 Benign neoplasm of sigmoid colon; K62.1 Rectal polyp; K64.8 Other hemorrhoids; K64.4 Residual hemorrhoidal skin tags; R19.5 Other fecal abnormalities; I10 Essential (primary) hypertension; Z79.02 Long term (current) use of antithrombotics/antiplatelets; Z86.73 Personal history of transient ischemic attack (TIA), and cerebral infarction without residual deficits; Z79.82 Long term (current) use of aspirin; Z87.891 Personal history of nicotine dependence; Z92.83 Personal history of failed moderate sedation; Z79.899 Other long term (current) drug therapy
CPT/HCPCS: 45380; 45385; J7120

== ENCOUNTER 2022-04-20 08:16 | Outpatient (CLI) | payer MEDICARE ==
--- NOTE | 2022-04-20 09:32 | Ultrasound Report ---
PROCEDURE: Aorta Screening INDICATIONS: SCREENING FOR AAA TECHNIQUE: Real time scanning was performed of the aorta and iliac arteries, with image documentatio n. COMPARISON: None FINDINGS: Aorta: Proximal aortic diameter measures 2.2 x 2.3 cm. Mid-aorta measures 2.1 x 2.1 cm. Distal aor tic diameter is 1.8 x 1.8 cm. Iliac arteries: Right common iliac artery measures 1.2 cm. Left common iliac artery measures 1.2 cm . Atherosclerotic calcifications are present IMPRESSION: No abdominal aortic aneurysm. Atherosclerosis. Reviewed by: Twin Willis MD on 04/20/2022 9:31 AM PDT Approved by: Twin Willis MD on 04/20/2022 9:31 AM PDT Station ID: [id number]
== END 2022-04-20 08:17 | disposition home or self-care (01) ==
LOC: DI 08:16
PROVIDERS: ATTEND Family Medicine
DX: Z13.6 Encounter for screening for cardiovascular disorders (principal); I70.0 Atherosclerosis of aorta

== ENCOUNTER 2022-07-20 09:57 | Outpatient (CLI) | payer MEDICARE ==
--- NOTE | 2022-07-20 14:28 | DEXA Report ---
PROCEDURE: Dexa Spine and/or Hip INDICATIONS: POSTMENOPAUSAL TECHNIQUE: Dual energy x-ray absorptiometry (DXA) was performed on a [employer] System. Regions measur ed are the AP Spine, femoral neck, and if needed forearm. COMPARISON: None. FINDINGS: Lumbar Spine: Bone Mineral Density 1.199 g/cm/cm,T score 0.2, normal Left Hip: Bone Mineral Density 0.923 g/cm/cm,T score -0.7, normal Left Femoral Neck: Bone Mineral Density 0.824 g/cm/cm, T score -1.5, mild osteopenia (T score greater or equal to -1.0: NORMAL) (T score from -1.1 to -2.4: OSTEOPENIA) (T score less than or equal to -2.5 to: OSTEOPOROSIS) Impression: Mild osteopenia within the left femoral neck. Patients with diagnosis of osteoporosis or osteopenia should have regular bone mineral density assess ment. For those eligible for Medicare, routine testing is allowed once every 2 years. Testing frequ ency can be increased for patients who have rapidly progressing disease or for those who are receivin g medical therapy to restore bone mass. Reviewed by: Nataly Hamilton MD on 07/20/2022 2:27 PM PDT Approved by: Nataly Hamilton MD on 07/20/2022 2:27 PM PDT Station ID: [id number]
== END 2022-07-20 09:58 | disposition home or self-care (01) ==
LOC: DI 09:57
PROVIDERS: ATTEND Family Medicine
DX: Z78.0 Asymptomatic menopausal state (principal); M85.88 Other specified disorders of bone density and structure, other site

== ENCOUNTER 2022-11-24 12:43 | Outpatient (CLI) | payer MEDICARE ==
--- NOTE | 2022-11-24 14:35 | XRAY Report ---
PROCEDURE: Ankle 3 View RT INDICATIONS: SPRAIN OF UNSPECIFIED LIGAMENT OF RIGHT ANKLE, INI TECHNIQUE: 3 views of the ankle were acquired. COMPARISON: None FINDINGS: Bones: No fractures or dislocations. Well-corticated ossification of the tip of the medial malleolu s. Ankle mortise is normally aligned. No suspicious bony lesions. Soft tissues: No tibiotalar joint effusion. Achilles tendon appears normal. IMPRESSION: No acute abnormality of the right ankle. Reviewed by: Francesco Colbert on 11/24/2022 2:34 PM PST Approved by: Francesco Colbert on 11/24/2022 2:34 PM PST Station ID: [id number]
== END 2022-11-24 12:44 | disposition home or self-care (01) ==
LOC: DI 12:43
PROVIDERS: ATTEND Nurse Practitioner
DX: S93.401A Sprain of unspecified ligament of right ankle, initial encounter (principal)